=== PATIENT | male | born 1955 | race Caucasian/White ===

== ENCOUNTER 2019-01-03 12:06 | Day surgery (SDC) | payer OTHER ==
[~2019-01-03] VITALS: Ht 177.8 cm; Wt 72.6 kg
[~2019-01-03 12:06] MED LIST: ARIP20 PO; AZIT250 PO; Bactrim 400-801 EACH PO; ETHA400 PO; MOXI400 PO; SERT25 PO; SERT50 PO; [UNRECOGNIZED DRUG - OTHER] PO
--- NOTE | 2019-01-03 13:10 | NUR ---
PT VOMITTING OUT IN WAITING AREA. STATES HE HAS BEEN NAUSEATED A COUPLE HOURS. BROUGHT PT BACK TO DAY SURGERY AND STATED HE WAS FEELING BETTER AFTER LYING DOWN. PT AGREES WITH PLANNED SURGERYL.
--- NOTE | 2019-01-03 13:56 | NUR ---
01/03/19 1356 Leo Colin 3-LEAD EKG REVIEWED WITH PHYSICIAN PRIOR TO START OF PROCEDURE.PATIENT CONFIRMS NPO STATUS AND AGREES WITH SCHEDULED PROCEDURE.History, Chart, Medications and Allergies reviewed before start of procedure. MONITOR INTACT WITH CONTINUOUS PULSE OXIMETRY AND INTERMITTENT BP. O2 VIA N/C INTACT THROUGHOUT SEDATION/PROCEDURE.
--- NOTE | 2019-01-03 16:03 | NUR ---
Patient up to Ambulate independently. Gait steady. Discharge instructions reviewed with patient. Patient verbalizes understanding. Copy given to patient to take home. Patient States Post-Procedure ride home has been arranged. Discharged via wheelchair to private car for ride home.
== END 2019-01-03 16:00 | disposition home or self-care (01) ==
LOC: ORSCMMR 12:06 → ORD 13:45 → ORSCMMR 16:00
PROVIDERS: Student in an Organized Health Care Education/Training Program
PROC: 0DBK8ZX Excision of Ascending Colon, Via Natural or Artificial Opening Endoscopic, Diagnostic (ICD-10-PCS; principal; 2019-01-03 13:45)
PROC: 0DBL8ZX Excision of Transverse Colon, Via Natural or Artificial Opening Endoscopic, Diagnostic (ICD-10-PCS; principal; 2019-01-03 13:45)
PROC: 0DBP8ZX Excision of Rectum, Via Natural or Artificial Opening Endoscopic, Diagnostic (ICD-10-PCS; principal; 2019-01-03 13:45)
PROC: 0DBN8ZX Excision of Sigmoid Colon, Via Natural or Artificial Opening Endoscopic, Diagnostic (ICD-10-PCS; principal; 2019-01-03 13:45)
DX: R93.5 Abnormal findings on diagnostic imaging of other abdominal regions, including retroperitoneum (principal); D12.5 Benign neoplasm of sigmoid colon; D12.3 Benign neoplasm of transverse colon; D12.2 Benign neoplasm of ascending colon; K63.5 Polyp of colon; D12.8 Benign neoplasm of rectum; K57.30 Diverticulosis of large intestine without perforation or abscess without bleeding; K64.8 Other hemorrhoids; B20 Human immunodeficiency virus [HIV] disease; G47.33 Obstructive sleep apnea (adult) (pediatric); Z79.899 Other long term (current) drug therapy
CPT/HCPCS: 82947; 88305; J2704; J7120

== ENCOUNTER 2019-01-15 14:43 | Emergency (ER) | payer OTHER ==
[~2019-01-15] VITALS: Ht 177.8 cm; Wt 74.8 kg
[2019-01-15] MEDS ORDERED: Percocet 5-3251 EACH PO (15:31)
[2019-01-15] MEDS ORDERED: Zovirax400 MG PO (15:31)
== END 2019-01-15 15:50 | disposition home or self-care (01) ==
LOC: ER 14:43
DX: B02.9 Zoster without complications (principal); N18.3 Chronic kidney disease, stage 3 (moderate); F31.9 Bipolar disorder, unspecified; Z88.0 Allergy status to penicillin; Z88.8 Allergy status to other drugs, medicaments and biological substances; Z79.899 Other long term (current) drug therapy
CPT/HCPCS: 99282

== ENCOUNTER 2019-08-14 08:10 | Emergency (ER) | payer OTHER ==
[~2019-08-14] VITALS: Ht 177.8 cm; Wt 87.1 kg
[~2019-08-14 08:10] MED LIST changes: +ONDA4ODT MM; +Percocet 5-3251 EACH PO; +Zovirax400 MG PO
[2019-08-14 08:57] LABS: BASOPHILS ABSOLUTE AUTO 0.05 K/mm3 (0.00-0.23); BASOPHILS PERCENT AUTO 0 % (0-2); EOSINOPHILS ABSOLUTE AUTO 0.03 K/mm3 (0.00-0.68); EOSINOPHILS PERCENT AUTO 0 % (0-6); Hematocrit 33.1 % (37.0-53.0); Hemoglobin 11.3 g/dL (13.5-17.5); IMMATURE GRAN ABSOLUTE AUTO 0.15 K/mm3 (0.00-0.10); IMMATURE GRAN PERCENT AUTO 1 % (0-1); LYMPHOCYTES PERCENT AUTO 8 % (21-46); MONOCYTES ABSOLUTE AUTO 0.72 K/mm3 (0.16-1.47); MONOCYTES PERCENT AUTO 6 % (4-13); Mean Corpuscular HGB 28.6 pg (26.0-34.0); Mean Corpuscular HGB Conc 34.1 g/dL (31.5-36.5); Mean Corpuscular Volume 84 fL (80-100); Mean Platelet Volume 9.9 fL (9.1-12.4); NEUTROPHILS ABSOLUTE AUTO 9.55 K/mm3 (1.96-9.15); NEUTROPHILS PERCENT AUTO 84 % (41-73); Platelet Count 629 K/mm3 (150-400); RDW Coefficient Variation 14.1 % (11.7-14.2); RDW Standard Deviation 43.2 fL (35.1-46.3); Red Blood Cell Count 3.95 M/mm3 (4.30-5.90)
[2019-08-14] MEDS ORDERED: Zantac150 MG PO (08:57)
[2019-08-14] MEDS ORDERED: FERSU300 PO (08:57)
[2019-08-14] MEDS ORDERED: BIKTARVY 50-201 EACH PO (08:57)
[2019-08-14] MEDS ORDERED: AMLO5 PO (08:58)
[2019-08-14] MEDS ORDERED: Lomotil Tablet1 EACH PO (08:58)
[2019-08-14] MEDS ORDERED: ENOX40I SC (08:58)
[2019-08-14] MEDS ORDERED: Norco 5-325 Ta1 EACH PO (09:12)
[2019-08-14 09:26] LABS: Albumin, Blood 3.2 g/dL (3.4-5.0); Albumin/Globulin Ratio 0.5 (0.8-1.8); Bilirubin, Total 0.2 mg/dL (0.1-1.0); Bun/Creatinine Ratio 33.9 (12.0-20.0); Creatinine, Blood 1.86 mg/dL (0.60-1.20); Globulin, Blood 6.2 g/dL (2.2-4.0); Potassium, Blood 4.5 mmol/L (3.5-5.5); Total Protein, Blood 9.4 g/dL (6.4-8.2)
== END 2019-08-14 09:24 | disposition home or self-care (01) ==
LOC: ER 08:10
PROVIDERS: Emergency Medicine
DX: G89.18 Other acute postprocedural pain (principal); R10.9 Unspecified abdominal pain; N18.2 Chronic kidney disease, stage 2 (mild); B20 Human immunodeficiency virus [HIV] disease; Z88.0 Allergy status to penicillin; Z88.8 Allergy status to other drugs, medicaments and biological substances; Z79.899 Other long term (current) drug therapy; Z98.890 Other specified postprocedural states
CPT/HCPCS: 36415; 80053; 85025; 99283

== ENCOUNTER 2019-08-17 03:13 | Inpatient (IN) | payer OTHER ==
[~2019-08-17] VITALS: Ht 177.8 cm; Wt 73.6 kg
[~2019-08-17 03:13] MED LIST changes: +AMLO5 PO; +BIKTARVY 50-201 EACH PO; +ENOX40I SC; +FERSU300 PO; +Lomotil Tablet1 EACH PO; +Norco 5-325 Ta1 EACH PO; +Zantac150 MG PO
[2019-08-17 03:40] LABS: BASOPHILS ABSOLUTE AUTO 0.02 K/mm3 (0.00-0.23); BASOPHILS PERCENT AUTO 0 % (0-2); EOSINOPHILS ABSOLUTE AUTO 0.01 K/mm3 (0.00-0.68); EOSINOPHILS PERCENT AUTO 0 % (0-6); Hematocrit 33.2 % (37.0-53.0); Hemoglobin 11.6 g/dL (13.5-17.5); IMMATURE GRAN ABSOLUTE AUTO 0.09 K/mm3 (0.00-0.10); IMMATURE GRAN PERCENT AUTO 1 % (0-1); LYMPHOCYTES ABSOLUTE AUTO 1.21 K/mm3 (0.84-5.20); LYMPHOCYTES PERCENT AUTO 11 % (21-46); MONOCYTES ABSOLUTE AUTO 0.83 K/mm3 (0.16-1.47); MONOCYTES PERCENT AUTO 8 % (4-13); Mean Corpuscular HGB 28.6 pg (26.0-34.0); Mean Corpuscular HGB Conc 34.9 g/dL (31.5-36.5); Mean Corpuscular Volume 82 fL (80-100); NEUTROPHILS ABSOLUTE AUTO 8.62 K/mm3 (1.96-9.15); NEUTROPHILS PERCENT AUTO 80 % (41-73); Platelet Count 676 K/mm3 (150-400); RDW Coefficient Variation 13.5 % (11.7-14.2); RDW Standard Deviation 39.8 fL (35.1-46.3); Red Blood Cell Count 4.06 M/mm3 (4.30-5.90); White Blood Cell Count 10.78 K/mm3 (4.00-11.30)
[2019-08-17 04:00] LABS: Albumin, Blood 3.1 g/dL (3.4-5.0); Albumin/Globulin Ratio 0.6 (0.8-1.8); Bilirubin, Total 0.3 mg/dL (0.1-1.0); Bun/Creatinine Ratio 42.2 (12.0-20.0); Calcium, Blood 8.5 mg/dL (8.5-10.1); Creatinine, Blood 2.49 mg/dL (0.60-1.20); Globulin, Blood 5.5 g/dL (2.2-4.0); Potassium, Blood 4.3 mmol/L (3.5-5.5); Total Protein, Blood 8.6 g/dL (6.4-8.2)
--- NOTE | 2019-08-17 07:37 | NUR ---
SHIFT SUMMARY PT NEW ADMIT TO FLOOR AROUND 0530. AOX4. [facility] [place]. VSS. REPORTS FEELING NAUSEOUS & IS DRY HEAVING DURING ASSESSMENT, ZOFRAN GIVEN PER ORDERS, CHECKED W/CHARGE NURSE IF OKAY TO GIVE SINCE PT HAD JUST RECIEVED ZOFRAN IN ER AROUND 0400. REPORTED TO DAY SHIFT RN THAT PT MAY NEED OTHER COVERAGE FOR NAUSEA. PT REPORTS 2/10 PAIN IN LOWER ABD. ABD IS SEVERELY DISTENDED, MORE FIRM ON RIGHT QUADRANTS COMPARED TO LEFT. COLOSTOMY IS ON RLQ, PT REPORTS NO OUTPUT IN THE PAST 3 DAYS, CHANGED OSTOMY APPLIANCE. 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 STATES HE HAS LOST ROUGHLY 26 LBS SINCE , SAYS HE FEELS HUNGRY BUT "IT HURTS TO SWALLOW." NG IN LEFT NARES SET TO LOW INTERMITANT SUCTION, HAS SCANT AMOUNT YELLOW BROWNISH OUTPUT. PT ALSO HAD INCONTINENT LOOSE BM & STATES HE HAS STILL BEEN HAVING BM EVEN W/HIS COLOSTOMY. PT NPO PER ORDERS. PT HAS HX AFIB & HEART SOUNDS IRREGULAR. CALL LIGHT IN REACH.
[2019-08-17 10:09] LABS: Uric Acid, Blood 11.7 mg/dL (3.5-7.2)
--- NOTE | 2019-08-17 14:52 | NUR ---
PATIENT VESTA TRANSFERRED TO [facility] NS RUNNING AT 75ML/HR. PACKET GIVEN TO AUTO BODY REPAIR TEACHER. REPORT CALLED TO MARGARITA ON [facility] 9D. BELONGINGS SENT WITH PATIENT. NG TUBE CLAMPED FOR TRASNPORT. PATIENT DENIES ANY FURTHER QUESTIONS OR CONCERNS.
== END 2019-08-17 14:48 | DRG 388 ==
LOC: ER 03:13 → MEDS 05:20
PROVIDERS: Emergency Medicine; Internal Medicine Nephrology; ADMIT Internal Medicine
PROC: 0D9670Z Drainage of Stomach with Drainage Device, Via Natural or Artificial Opening (ICD-10-PCS; principal; 2019-08-17)
DX: K56.609 Unspecified intestinal obstruction, unspecified as to partial versus complete obstruction (principal); K85.90 Acute pancreatitis without necrosis or infection, unspecified; E87.1 Hypo-osmolality and hyponatremia; N17.9 Acute kidney failure, unspecified; D63.1 Anemia in chronic kidney disease; D69.6 Thrombocytopenia, unspecified; N18.3 Chronic kidney disease, stage 3 (moderate); F31.9 Bipolar disorder, unspecified; Z21 Asymptomatic human immunodeficiency virus [HIV] infection status; E86.0 Dehydration; Z93.3 Colostomy status
CPT/HCPCS: 36415; 74176; 80053; 83690; 83930; 84295; 84550; 85025; J1650; J2405; J7030

== ENCOUNTER 2021-06-13 23:48 | Inpatient (IN) | payer OTHER ==
[~2021-06-13] VITALS: Ht 177.8 cm; Wt 73.5 kg
[2021-06-14 00:17] LABS: BASOPHILS ABSOLUTE AUTO 0.05 K/mm3 (0.00-0.23); BASOPHILS PERCENT AUTO 1 % (0-2); EOSINOPHILS ABSOLUTE AUTO 0.03 K/mm3 (0.00-0.68); EOSINOPHILS PERCENT AUTO 0 % (0-6); Hematocrit 42.5 % (37.0-53.0); Hemoglobin 13.9 g/dL (13.5-17.5); IMMATURE GRAN ABSOLUTE AUTO 0.03 K/mm3 (0.00-0.10); IMMATURE GRAN PERCENT AUTO 0 % (0-1); LYMPHOCYTES ABSOLUTE AUTO 1.14 K/mm3 (0.84-5.20); LYMPHOCYTES PERCENT AUTO 11 % (21-46); MONOCYTES ABSOLUTE AUTO 0.38 K/mm3 (0.16-1.47); MONOCYTES PERCENT AUTO 4 % (4-13); Mean Corpuscular HGB 28.3 pg (26.0-34.0); Mean Corpuscular HGB Conc 32.7 g/dL (31.5-36.5); Mean Corpuscular Volume 86 fL (80-100); Mean Platelet Volume 10.1 fL (9.1-12.4); NEUTROPHILS ABSOLUTE AUTO 9.11 K/mm3 (1.96-9.15); NEUTROPHILS PERCENT AUTO 85 % (41-73); Platelet Count 426 K/mm3 (150-400); RDW Coefficient Variation 13.8 % (11.7-14.2); RDW Standard Deviation 43.8 fL (35.1-46.3); Red Blood Cell Count 4.92 M/mm3 (4.30-5.90); White Blood Cell Count 10.74 K/mm3 (4.00-11.30)
[2021-06-14 00:35] LABS: Troponin I 0.04 ng/mL (0.000-0.040)
[2021-06-14 00:36] LABS: Albumin, Blood 3.2 g/dL (3.4-5.0); Albumin/Globulin Ratio 0.7 (0.8-1.8); Bilirubin, Total 0.5 mg/dL (0.1-1.0); Bun/Creatinine Ratio 17.5 (12.0-20.0); Creatinine, Blood 1.43 mg/dL (0.60-1.20); Globulin, Blood 4.9 g/dL (2.2-4.0); Potassium, Blood 4.1 mmol/L (3.5-5.5); Total Protein, Blood 8.1 g/dL (6.4-8.2)
[2021-06-14 00:58] LABS: Influenza A, PCR NEGATIVE (NEGATIVE); Influenza B, PCR NEGATIVE (NEGATIVE); Resp Syncytial Virus, PCR NEGATIVE (NEGATIVE); SARS-Cov-2 (COVID-19) PCR, MMC NEGATIVE (NEGATIVE)
[2021-06-14] MEDS ORDERED: SERT100 PO (01:07)
[2021-06-14] MEDS ORDERED: PIFELTRO100 MG PO (01:09)
[2021-06-14] MEDS ORDERED: EMTRICITABINE200 MG PO (01:09)
[2021-06-14] MEDS ORDERED: SULFAMETHOXAZO1 EACH PO (01:09)
--- NOTE | 2021-06-14 05:45 | NUR ---
SHIFT SUMMARY PATIENT ARRIVED TO ROOM 326 VIA STRETCHER AT 0345. HE IS ALERT AND ORIENTED X4. HAS NO COMPLAINTS OF PAIN. SHORT OF BREATH AND DYSPNIC ON EXERTION. ABLE TO AMBULATE INDEPENDENTLY. NO ACUTE ISSUES NOTED SINCE ADMIT. CALL LIGHT WITHIN REACH. REPORT GIVEN TO ONCOMING RN.
[2021-06-14 10:32] LABS: Bun/Creatinine Ratio 16.1 (12.0-20.0); Creatinine, Blood 1.49 mg/dL (0.60-1.20); Potassium, Blood 3.5 mmol/L (3.5-5.5)
[2021-06-14 10:35] LABS: BASOPHILS ABSOLUTE AUTO 0.06 K/mm3 (0.00-0.23); BASOPHILS PERCENT AUTO 1 % (0-2); EOSINOPHILS ABSOLUTE AUTO 0.03 K/mm3 (0.00-0.68); EOSINOPHILS PERCENT AUTO 0 % (0-6); Hematocrit 42.3 % (37.0-53.0); Hemoglobin 13.9 g/dL (13.5-17.5); IMMATURE GRAN ABSOLUTE AUTO 0.03 K/mm3 (0.00-0.10); IMMATURE GRAN PERCENT AUTO 0 % (0-1); LYMPHOCYTES ABSOLUTE AUTO 1.14 K/mm3 (0.84-5.20); LYMPHOCYTES PERCENT AUTO 11 % (21-46); MONOCYTES ABSOLUTE AUTO 0.55 K/mm3 (0.16-1.47); MONOCYTES PERCENT AUTO 5 % (4-13); Mean Corpuscular HGB 27.8 pg (26.0-34.0); Mean Corpuscular HGB Conc 32.9 g/dL (31.5-36.5); Mean Corpuscular Volume 85 fL (80-100); Mean Platelet Volume 10.2 fL (9.1-12.4); NEUTROPHILS ABSOLUTE AUTO 8.49 K/mm3 (1.96-9.15); NEUTROPHILS PERCENT AUTO 82 % (41-73); Platelet Count 374 K/mm3 (150-400); RDW Coefficient Variation 13.7 % (11.7-14.2); RDW Standard Deviation 42.5 fL (35.1-46.3)
--- NOTE | 2021-06-14 19:26 | NUR ---
PT WITH ELEVATED BP, PRN HYDRALAZINE ORDERED AND GIVEN WITH GOOD RESPONSE. PT'S HR IS UP TO 140'S WHEN HE REMOVES HIS OXYGEN AND WALKS TO THE BATHROOM. RECOVERS WELL WHEN HE RETURNS TO BED AND REPLACES OX, NO ACUTE CHANGES NOTED THIS SHIFT
[2021-06-15 04:54] LABS: BASOPHILS ABSOLUTE AUTO 0.04 K/mm3 (0.00-0.23); BASOPHILS PERCENT AUTO 0 % (0-2); EOSINOPHILS PERCENT AUTO 0 % (0-6); Hematocrit 40.6 % (37.0-53.0); Hemoglobin 13.7 g/dL (13.5-17.5); IMMATURE GRAN ABSOLUTE AUTO 0.03 K/mm3 (0.00-0.10); IMMATURE GRAN PERCENT AUTO 0 % (0-1); LYMPHOCYTES ABSOLUTE AUTO 0.87 K/mm3 (0.84-5.20); LYMPHOCYTES PERCENT AUTO 8 % (21-46); MONOCYTES ABSOLUTE AUTO 0.38 K/mm3 (0.16-1.47); MONOCYTES PERCENT AUTO 4 % (4-13); Mean Corpuscular HGB 28.4 pg (26.0-34.0); Mean Corpuscular HGB Conc 33.7 g/dL (31.5-36.5); Mean Corpuscular Volume 84 fL (80-100); Mean Platelet Volume 10.5 fL (9.1-12.4); NEUTROPHILS ABSOLUTE AUTO 9.67 K/mm3 (1.96-9.15); NEUTROPHILS PERCENT AUTO 88 % (41-73); Platelet Count 403 K/mm3 (150-400); RDW Coefficient Variation 13.6 % (11.7-14.2); RDW Standard Deviation 42.1 fL (35.1-46.3); Red Blood Cell Count 4.83 M/mm3 (4.30-5.90); White Blood Cell Count 10.99 K/mm3 (4.00-11.30)
[2021-06-15 05:38] LABS: Calcium, Blood 9.1 mg/dL (8.5-10.1); Creatinine, Blood 1.65 mg/dL (0.60-1.20); Potassium, Blood 3.8 mmol/L (3.5-5.5)
--- NOTE | 2021-06-15 05:40 | NUR ---
SHIFT SUMMARY: PT IS A/OX4. HE DID HAVE SOME EPISODES OF NAUSEA/DRY HEAVES. ODT ZOFRAN WAS GIVEN AND NOT EFFECTIVE. PHENERGAN WAS ORDERED AND NAUSEA WAS RESOLVED. ON TELE PT WAS ST AND BP WAS ELEVATED TO 165/130. HYDRALAZINE WAS GIVEN WITH A PRESSURE OF 144/100. OTHER VS WERE WNL AND PT WAS RESTING COMFORTABLY. PT HAS CPAP IN ROOM BUT STATES HE DOES NOT CURRENTLY USE AT HOME. PT REMAINED ON 3L OF O2 DURING THE NOC SHIFT AND SATS WERE >92%. CALL LIGHT IS WITHIN REACH AND WE'LL CONTINUE TO MONITOR.
--- NOTE | 2021-06-15 14:35 | NUR ---
[facility] UPDATE CALLED TO LET US KNOW WAITING ON INSURANCE APPROVAL WHICH WONT HAPPEN UNTIL THURSDAY.
--- NOTE | 2021-06-15 17:53 | NUR ---
DAY SHIFT SUMMARY 65 YEAR OLD MALE WITH ACUTE CHF. PT IS ON TELE. PER TELE MONITOR PT STARTED SHIFT WITH ST AT 119, THEN HAD A RUN OF 4 BEAT V-TACH, THEN A 5 BEAT RUN OF V-TACH FOLLOWED BY SR AT 91. PT MEDICATED PER EMAR. CALL LIGHT WITHIN REACH OF PT AND PT CALLS APPROPRIATELY. [facility] ORDER PLACED FOR PT TODAY WITH COMPANY, PER COMPANY THEY WILL BE UNABLE TO RUN THE ORDER THROUGH PT'S INSURANCE UNTIL THURSDAY. DECISION TO BE MADE ON SENDING PT HOME WITH [facility] OR TRANSFERING TO [facility].
--- NOTE | 2021-06-16 03:11 | NUR ---
Pt is alert and oriented x4 and independent. No complains of pain. 2L NC for oxygen. No signs of distress. Patient is tolerating all medications. Patient is now laying on bed in lowest position, call light within reach.
[2021-06-16 05:06] LABS: BASOPHILS ABSOLUTE AUTO 0.05 K/mm3 (0.00-0.23); BASOPHILS PERCENT AUTO 1 % (0-2); EOSINOPHILS ABSOLUTE AUTO 0.11 K/mm3 (0.00-0.68); EOSINOPHILS PERCENT AUTO 2 % (0-6); Hematocrit 41.6 % (37.0-53.0); Hemoglobin 13.4 g/dL (13.5-17.5); IMMATURE GRAN ABSOLUTE AUTO 0.02 K/mm3 (0.00-0.10); IMMATURE GRAN PERCENT AUTO 0 % (0-1); LYMPHOCYTES ABSOLUTE AUTO 1.13 K/mm3 (0.84-5.20); LYMPHOCYTES PERCENT AUTO 18 % (21-46); MONOCYTES ABSOLUTE AUTO 0.41 K/mm3 (0.16-1.47); MONOCYTES PERCENT AUTO 6 % (4-13); Mean Corpuscular HGB 27.7 pg (26.0-34.0); Mean Corpuscular HGB Conc 32.2 g/dL (31.5-36.5); Mean Corpuscular Volume 86 fL (80-100); Mean Platelet Volume 10.2 fL (9.1-12.4); NEUTROPHILS ABSOLUTE AUTO 4.71 K/mm3 (1.96-9.15); NEUTROPHILS PERCENT AUTO 73 % (41-73); Platelet Count 386 K/mm3 (150-400); RDW Coefficient Variation 13.8 % (11.7-14.2); RDW Standard Deviation 43.8 fL (35.1-46.3); Red Blood Cell Count 4.84 M/mm3 (4.30-5.90); White Blood Cell Count 6.43 K/mm3 (4.00-11.30)
[2021-06-16 06:11] LABS: Bun/Creatinine Ratio 22.5 (12.0-20.0); Calcium, Blood 8.9 mg/dL (8.5-10.1); Creatinine, Blood 1.87 mg/dL (0.60-1.20); Potassium, Blood 3.6 mmol/L (3.5-5.5)
--- NOTE | 2021-06-16 10:57 | NUR ---
TRANSFER FROM MED FLOOR TO ICU 65 YR OLD MALE TRANSFERED FROM MEDICAL 326 TO ICU-11. PER TELE MONITOR PT WENT FROM NSR TO AFIB AT 140. MD MADE AWARE AND PER MD ORDER PT TRANSFERED TO ICU FOR CLOSER MONITORING AND IV MEDS. PT TRANSFERED BY BED WITH ALL PERSONAL BELONGINGS IN BED WITH HIM. A/O UPON TRANSFER.
--- NOTE | 2021-06-16 11:00 | NUR ---
PT TRANSFERED FROM MEDICAL ROOM 326 FOR AFIB RVR, NEEDING AMIO GTT. PT IS A/O X4. DENIES CP, N/V, AND SOB. WHEN PLACED ON THE MONITOR RHYTHM SHOWS SR IN THE 80'S. CALLED DR. ALBA WHO CHANGED AMIO GTT TO PO FORM. FIRST DOSE GIVEN. DR. ALBA SAYS IF PT REMAINS IN SR FOR 2 HRS HE CAN GO BACK TO MEDICAL FLOOR. NO SIGN OF DISTRESS. NO REQUESTS. CALL LIGHT IN REACH.
--- NOTE | 2021-06-16 14:02 | NUR ---
PT HAS BEEN STABLE FOR 2 HRS IN ICU. NO AFIB ON MONITOR IN ICU. REPORT GIVEN TO CHI DE LEON WHO WILL RESUME CARE OF PT. NO SIGN OF DISTRESS PT LEAVES ICU VIA W/C ACCOMPANIED BY BUSINESS PROCESS COORDINATOR.
--- NOTE | 2021-06-16 17:32 | NUR ---
DAY SHIFT SUMMARY 65 YR OLD PT WITH ACUTE CHF. [facility] TO BE FITTED THURSDAY AFTER INSURANCE APPROVAL. PT TRANSFERED TO ICU TODAY AT REQUEST OF MD FOR AFIB AT 140, WHEN PT RETURNED TO R HE RETURNED TO MED FLOOR TO SAME ROOM. CURRENT TELE READING OF SR WITH PVC AND PAC AT 89. CALL LIGHT WITHIN REACH OF PT AND ABLE TO CALL APPROPRIATELY.
--- NOTE | 2021-06-17 05:24 | NUR ---
SHIFT SUMMARY PT AOX4 PLEASANT NO ACUTE CHANGE IN THIS SHIFT REFUSED CPAP ON CONT PULSE MINOTER 97% R/A.PT ON TELE MONITOR SNR RUNNING AT 78 PER DIRECTOR INVESTMENT BANKING.NO SOB NOTED ABLE TO TRANFER INDEPENDENT TO THE BATHROOM.PT MARSHALL EARING AID BY THE BEDSIDE.
[2021-06-17 07:47] LABS: Bun/Creatinine Ratio 24.3 (12.0-20.0); Creatinine, Blood 1.77 mg/dL (0.60-1.20); Potassium, Blood 3.4 mmol/L (3.5-5.5)
--- NOTE | 2021-06-17 19:43 | NUR ---
SHIFT SUMMARY PATIENT RESTING IN BED. PATIENT INDEPENDENT IN ROOM AND ABLE TO MAKE HIS NEEDS KNOWN. ON RA. NO COMPLAINTS OF PAIN, SOB, N/V. PATIENT NPO AFTER BREAKFAST FOR POSSIBLE CARDIOVERSION. CARDIOVERSION NOT NEEDED. PATIENT FITTED WITH [facility] THIS EVENING. PLAN TO DISCHARGE TOMORROW. BED IN LOW POSITION WITH CALL LIGHT IN REACH.
--- NOTE | 2021-06-18 03:30 | NUR ---
SHIFT SUMMARY OFFSET PROOF PRESS OPERATOR REPORT QTC 0.52 DR KAISER MADE AWARE NEW ORDER MAG LEVEL.LAB ORDERED. NO ACUTE CHANGES NOTED IN THIS SHIFT PATIENT CALM NO S/S OF DISTRESS NOTED .STAFF WILL CONT TO MONITOR
[2021-06-18 07:16] LABS: Bun/Creatinine Ratio 20.8 (12.0-20.0); Calcium, Blood 8.8 mg/dL (8.5-10.1); Creatinine, Blood 1.73 mg/dL (0.60-1.20); Potassium, Blood 3.7 mmol/L (3.5-5.5)
--- NOTE | 2021-06-18 08:02 | NUR ---
HALEY recmarie handoff of patient care from HALEY Pastrana Patient was alert and orient and awake in bed. Patient had no requests at this time
--- NOTE | 2021-06-18 14:00 | NUR ---
Met pt. with his therapists in the room attending to his needs prayed for pt.
[2021-06-18] MEDS ORDERED: FURO20 PO (16:28)
[2021-06-18] MEDS ORDERED: Amiodarone HCl200 MG PO (16:29)
[2021-06-18] MEDS ORDERED: ELIQUIS2.5 MG PO (16:32)
[2021-06-18] MEDS ORDERED: Aspir 8181 MG PO (16:33)
[2021-06-18] MEDS ORDERED: Carvedilol12.5 MG PO (16:34)
[2021-06-18] MEDS ORDERED: ATOR20 PO (16:34)
--- NOTE | 2021-06-18 17:06 | NUR ---
Patient was alert and orient, he was excited to be discharged today. He was discharged at 1715 and his dad picked him up. RN reviewed discharge instructions and medications. RN also helped pack his belongings. Patient had no further requests at this time. He was assisted of the unit by staff.
== END 2021-06-18 17:04 | disposition home or self-care (01) | DRG 292 ==
LOC: ER 23:48 → MEDS 06-14 02:35 → ICUW 06-16 10:47 → MEDS 06-16 14:25
PROVIDERS: Emergency Medicine; Family Medicine; Student in an Organized Health Care Education/Training Program; ADMIT Internal Medicine
DX: I50.21 Acute systolic (congestive) heart failure (principal); B20 Human immunodeficiency virus [HIV] disease; I42.9 Cardiomyopathy, unspecified; Z20.822 Contact with and (suspected) exposure to COVID-19; I48.0 Paroxysmal atrial fibrillation; N18.30 Chronic kidney disease, stage 3 unspecified; F31.9 Bipolar disorder, unspecified; G47.33 Obstructive sleep apnea (adult) (pediatric); M54.9 Dorsalgia, unspecified; R79.1 Abnormal coagulation profile; G89.29 Other chronic pain; Z88.0 Allergy status to penicillin; Z88.8 Allergy status to other drugs, medicaments and biological substances; Z28.21 Immunization not carried out because of patient refusal; Z79.899 Other long term (current) drug therapy; Z98.890 Other specified postprocedural states; Z85.048 Personal history of other malignant neoplasm of rectum, rectosigmoid junction, and anus; Z91.14 Patient's other noncompliance with medication regimen
CPT/HCPCS: 0241U; 36415; 71045; 80048; 80053; 83605; 83735; 83880; 84484; 85025; 85379; 93005; 93010; 93306; 94660; 94762; 96374; 99285; A9270; J0360; J1644; J1940; J2550

== ENCOUNTER 2021-11-20 23:56 | Inpatient (IN) | payer OTHER ==
[~2021-11-20] VITALS: Ht 177.8 cm; Wt 73.8 kg
[~2021-11-20 23:56] MED LIST changes: +ATOR20 PO; +Amiodarone HCl200 MG PO; +Aspir 8181 MG PO; +Carvedilol12.5 MG PO; +ELIQUIS2.5 MG PO; +EMTRICITABINE200 MG PO; +FURO20 PO; +PIFELTRO100 MG PO; +SERT100 PO; +SULFAMETHOXAZO1 EACH PO
[2021-11-21 00:59] LABS: BASOPHILS ABSOLUTE AUTO 0.02 K/mm3 (0.00-0.23); BASOPHILS PERCENT AUTO 0 % (0-2); EOSINOPHILS PERCENT AUTO 0 % (0-6); Hematocrit 36.7 % (37.0-53.0); Hemoglobin 11.8 g/dL (13.5-17.5); IMMATURE GRAN ABSOLUTE AUTO 0.06 K/mm3 (0.00-0.10); IMMATURE GRAN PERCENT AUTO 0 % (0-1); LYMPHOCYTES PERCENT AUTO 7 % (21-46); MONOCYTES ABSOLUTE AUTO 0.81 K/mm3 (0.16-1.47); MONOCYTES PERCENT AUTO 6 % (4-13); Mean Corpuscular HGB 25.4 pg (26.0-34.0); Mean Corpuscular HGB Conc 32.2 g/dL (31.5-36.5); Mean Corpuscular Volume 79 fL (80-100); Mean Platelet Volume 10.8 fL (9.1-12.4); NEUTROPHILS ABSOLUTE AUTO 11.57 K/mm3 (1.96-9.15); NEUTROPHILS PERCENT AUTO 87 % (41-73); NRBC ABSOLUTE 0.02 K/mm3 (0.00-0.02); NRBC Auto 0.1 /100 WBC (0.0-0.2); Platelet Count 371 K/mm3 (150-400); RDW Standard Deviation 45.6 fL (35.1-46.3); Red Blood Cell Count 4.64 M/mm3 (4.30-5.90); White Blood Cell Count 13.36 K/mm3 (4.00-11.30)
[2021-11-21 01:11] LABS: Albumin, Blood 2.7 g/dL (3.4-5.0); Albumin/Globulin Ratio 0.6 (0.8-1.8); Bun/Creatinine Ratio 28.4 (12.0-20.0); Calcium, Blood 8.6 mg/dL (8.5-10.1); Creatinine, Blood 1.83 mg/dL (0.60-1.20); Globulin, Blood 4.6 g/dL (2.2-4.0); Potassium, Blood 4.7 mmol/L (3.5-5.5); Total Protein, Blood 7.3 g/dL (6.4-8.2)
[2021-11-21 02:22] LABS: Influenza A, PCR NEGATIVE (NEGATIVE); Influenza B, PCR NEGATIVE (NEGATIVE); Resp Syncytial Virus, PCR NEGATIVE (NEGATIVE); SARS-Cov-2 (COVID-19) PCR, MMC NEGATIVE (NEGATIVE)
--- NOTE | 2021-11-21 06:14 | NUR ---
PT ARRIVED FROM ED ON 2L NC. A&OX4. DENIES PAIN. AMBULATES IN ROOM. BEDSIDE URINAL. INDEPENDENT WITH CARE. SURGICAL SCAR AT ABDOMEN. DENIES SKIN ISSUES. 2+ PITTING EDEMA BLE. DENIES CHEST PAIN OR SOB. CTM COMFORT, PAIN, OXYGENATION, CO
[2021-11-21 08:42] LABS: BASOPHILS ABSOLUTE AUTO 0.04 K/mm3 (0.00-0.23); BASOPHILS PERCENT AUTO 0 % (0-2); EOSINOPHILS ABSOLUTE AUTO 0.01 K/mm3 (0.00-0.68); EOSINOPHILS PERCENT AUTO 0 % (0-6); Hematocrit 40.6 % (37.0-53.0); Hemoglobin 12.6 g/dL (13.5-17.5); IMMATURE GRAN ABSOLUTE AUTO 0.07 K/mm3 (0.00-0.10); IMMATURE GRAN PERCENT AUTO 1 % (0-1); LYMPHOCYTES ABSOLUTE AUTO 1.17 K/mm3 (0.84-5.20); LYMPHOCYTES PERCENT AUTO 8 % (21-46); MONOCYTES ABSOLUTE AUTO 0.81 K/mm3 (0.16-1.47); MONOCYTES PERCENT AUTO 6 % (4-13); Mean Corpuscular Volume 81 fL (80-100); Mean Platelet Volume 10.4 fL (9.1-12.4); NEUTROPHILS ABSOLUTE AUTO 12.04 K/mm3 (1.96-9.15); NEUTROPHILS PERCENT AUTO 85 % (41-73); Platelet Count 315 K/mm3 (150-400); RDW Coefficient Variation 16.1 % (11.7-14.2); RDW Standard Deviation 47.3 fL (35.1-46.3); Red Blood Cell Count 5.03 M/mm3 (4.30-5.90); White Blood Cell Count 14.14 K/mm3 (4.00-11.30)
[2021-11-21 08:56] LABS: Albumin, Blood 2.8 g/dL (3.4-5.0); Albumin/Globulin Ratio 0.6 (0.8-1.8); Bilirubin, Total 1.2 mg/dL (0.1-1.0); Bun/Creatinine Ratio 27.1 (12.0-20.0); Calcium, Blood 8.7 mg/dL (8.5-10.1); Creatinine, Blood 1.81 mg/dL (0.60-1.20); Potassium, Blood 3.8 mmol/L (3.5-5.5); Total Protein, Blood 7.8 g/dL (6.4-8.2)
[2021-11-21 08:57] LABS: CPK Creatine Kinase 106 U/L (39-308)
[2021-11-21] MEDS ORDERED: POTA10T PO (10:50)
[2021-11-21] MEDS ORDERED: Atarax10 MG PO (10:53)
[2021-11-21] MEDS ORDERED: ONDA4 PO (10:53)
[2021-11-21] MEDS ORDERED: DOCU100 PO (10:54)
[2021-11-21] MEDS ORDERED: PIFELTRO100 MG PO (10:59)
[2021-11-21] MEDS ORDERED: EMTRICITABINE200 MG PO (10:59)
[2021-11-21] MEDS ORDERED: [UNRECOGNIZED DRUG - OTHER] PO (10:59)
--- NOTE | 2021-11-21 11:33 | NUR ---
AM NOTE: PATIENT ALERT AND ORIENTED X4. VERY SLEEPY AND QUIET. MOSTLY JUST SHAKING HEAD YES AND NO TO QUESTIONS. ABLE TO TURN SELF IN BED. SBA WHEN UP. BED BATH THIS AM. ON 1-2L NASAL CANNULA SATING MID 90'S. DENIES SOB ALTHOUGH RR INCREASE WITH MOVEMENT OR TALKING. LUNGS SOUNDING CLEAR WITH SOME CRACKLES IN BASES. DENIES COUGH. TELE SHOWING SINUS RHYTHM WITH HR 90-110'S. FREQUENT PVC'S. DENIES CHEST PAIN/PRESSURE. BP ELEVATED. BLE 2+ PITTING EDEMA. FLUID RESTRICTION IN PLACE. EATING WELL. DENIES ABDOMINAL PAIN/NAUSEA. STOOL SAMPLE TO BE COLLECTED. USING URINAL, OCCASIONAL INCONTINENCE. SLIGHTLY ELEVATED TEMP THIS AFTERNOON 99.7 TAKEN VIA ORAL. MED REC COMPLETED WITH PATIENTS MOTHER IN [place]. ABLE TO READ OFF MEDICATION BOTTLES AT HOME, WITH PATIENT PERMISSION. [facility] ALSO FAXED FOR PRESCRIPTION RECORDS. WAITING FOR FAX. DR. KAISER CALLED TO UPDATE ON MED REC, ELEVATED BP, POSSIBLE WORMS REPORTED BY PARTNER, AND FLUID INTAKE/OUTPUT. PATIENT PARTNER BOB IN THIS AM TO DROP OFF PATIENT BELONGINGS. BOB TOLD THIS RN, ABOUT CATS AT HOME HAVING WORMS AND THAT SHE STARTED PASSING THEM HERSELF, SHE WAS WORRIED ABOUT PATIENT HAVING THEM WELL. UP WITH SBA. SLEEPING AT THIS TIME. WILL CONTINUE TO MONITOR.
--- NOTE | 2021-11-21 11:41 | NUR ---
MESSAGE LEFT FOR PARTNER BOB TO BRING IN PATIENT HOME MEDICATIONS THAT WE DO NOT CARRY. CALL PLACED WITH PATIENT PERMISSION.
--- NOTE | 2021-11-21 12:55 | NUR ---
PATIENT HR UP TO 140'S WHILE SLEEPING, LESS THAN ONE MIN. DID NOT SUSTAIN. BACK DOWN 90'S-100'S. NONSYMPTOMATIC. WILL CONTINUE TO MONITOR.
--- NOTE | 2021-11-21 15:43 | NUR ---
UPDATE: 1600 CHECK BP ELEVATED. CALL PLACED TO DR. KAISER TO, ORDERS TO GIVE COREG EARLY. COREG ADMINISTERED. PATIENT HR SUSTAINING 150'S, TOUCHED UP TO 160'S. CALL PLACED TO DR. KAISER AGAIN. ORDERS TO GIVE IV METOPROLOL 5MG X1. ADMINISTERED AND PATIENT HR TRENDING DOWN. SEE VITALS FOR DOCUMENTED HR. PATIENT DENIES SYMPTOMS. DENIES PALPITATIONS, DIZZINESS, AND ALL OTHERS. SITTING IN BED AT THIS TIME. STATUS CHANGED TO PCU, WILL CONTINUE TO MONITOR.
--- NOTE | 2021-11-21 15:58 | NUR ---
UPDATE: PATIENT CONVERTED TO AFIB AT 1537, RIGHT AFTER METOPROLOL WAS GIVEN. PATIENT STATES HE HAS HISTORY OF AFIB BUT DOES NOT REMEMBER TAKING ANY MEDICATIONS FROM IT. MED REC COMPLETED WITH PATIENT MOTHER IN [place] AND [facility], SEE CHART FOR RECORDS. DR. KAISER CALLED TO UPDATE ON CONVERSION TO AFIB, SEE PRN ORDERS. WILL CONTACT DR. KAISER AGAIN IF PATIENT HR STARTS INCREASING. CONVERTED BACK TO SINUS TACH AT 1552. SEE SAVED STRIPS FROM [employer].
--- NOTE | 2021-11-21 16:51 | NUR ---
UPDATE: HR TRENDING DOWN. CONVERSION BACK TO AFIB FROM SINUS TACH. SEE SAVED STRIPS FROM TELE MONITOR SILVANA. HR SUSTAINING 90-110'S. PATIENT SLIGHTLY RESTLESS/ANXIOUS. SEE EMAR FOR PRN ATARAX THAT WAS GIVEN. PARTNER BOB AT BEDSIDE. DENIES NEEDS AT THIS TIME. WILL CONTINUE TO MONITOR.
[2021-11-21 17:04] LABS: CPK Creatine Kinase 78 U/L (39-308)
--- NOTE | 2021-11-21 17:32 | NUR ---
SHIFT SUMMARY: SEE PREVIOUS NOTES FOR UPDATES THROUGHOUT SHIFT. NO CHANGES TO NEURO. REMAINS ON 1-4L NEEDING MORE WHEN ASLEEP. PATIENT STATES HE STOPPED WEARING HIS CPAP AT HOME AROUND 2019. THIS RN NOTED SOME SLEEP APNEA AND DESATING WHEN SLEEPING. CPAP OFFERED AND PATIENT REFUSED. WILL PASS OFF TO TESTING CONSULTANT. 2 EPISODES THIS AM OF URINE INCONTINENCE. THIS RN EDUCATED PATIENT IMPORTANCE OF USING URINAL SO WE ARE ABLE TO MEASURE. PATIENT ABLE TO USE URINAL, WELL EPISODES OF INCONTINENCE. FLUID RESTRICTION IN PLACE AND MAINTAINED. NO BOWEL MOVEMENT, NEEDING STOOL SAMPLE. ONE EPISODE OF NAUSEA THIS AFTERNOON RELIEVED WITH ZOFRAN. UP WITH SBA. TELE SHOWING AFIB AT THIS TIME. SEE PREVIOUS NOTES REGARDING TELE EVENTS. BRIEF TIMELINE OF TELE EVENTS LISTED BELOW. THIS AM PATIENT WAS IN SINUS RHYTHM - SINUS TACH HR 90-100'S. 1600 BP CHECK ELEVATED, ORDERS TO GIVE COREG EARLY. 1526 PATIENT STARTED TO SUSTAIN HR 150'S, ORDERS TO GIVE IV METOPROLOL. 1537 CONVERTED TO AFIB HR 120-130'S, DR KAISER UPDATED. 1558 CONVERTED TO SINUS TACH HR REMAINS 130'S, DR. KAISER UPDATED/PRN IV METOP. 1630 MANJU PATIENT CONVERTED BACK TO AFIB AND HR 90'S-110'S. AT THIS TIME PATIENT REMAINS AFIB, WITH HR 90'S. DENIES CHEST PAIN/PRESSURE. BP TRENDING DOWN BUT STILL SLIGHTLY ELEVATED. WILL CONTINUE TO MONITOR. PATIENT SLEEPING AT THIS TIME. CALL LIGHT IN REACH. WILL CONTINUE TO MONITOR AND REPORT OFF TO ONCOMING RN.
[2021-11-22 04:39] LABS: Bun/Creatinine Ratio 27.6 (12.0-20.0); Calcium, Blood 8.5 mg/dL (8.5-10.1); Creatinine, Blood 1.81 mg/dL (0.60-1.20); Magnesium, Blood 2.2 mg/dL (1.6-2.4); Potassium, Blood 3.6 mmol/L (3.5-5.5)
--- NOTE | 2021-11-22 07:40 | NUR ---
SHIFT SUMMARY PT ALERT AND ORIENTED X4. ON 2-4L NC SATS OVER 94%. SR 70-80'S THROUGHT THE NIGHT. INCONTINENT. PT IS ON DIURETICS. DOES NOT FEEL THE URGE TO URINATE UNTIL IT IS TOO LATE. BP STABLE. BROUGHT IN HIV HOME MEDICATIONS. PT STATES REQUEST TO LEAVE AMA EARLY THIS EVENING. REASSURED PT MULTIPLE TIMES THIS AM, PT UNSURE IF HE WILL BE ABLE TO STAY, TEARFUL AND EMOTIONAL ABOUT HIS HOSPITAL STAY. LETHARGIC AND SLEEPY FIRST FEW HRS OF SHIFT, OTHERWISE AWAKE. IN BED SEATED WITH CALL ALARM AT SIDE
--- NOTE | 2021-11-22 08:20 | NUR ---
AM NOTE... ASSUMED CARE OF PT AT 0700 THE PT IS A&Ox4 AND IND/SBA IN THE ROOM. THE PT WAS ADMITTED FOR CHF EXAC AND IS CURRENTLY ON A 1200MLS FLUID RESTRICTION AND IV BUMEX. THE PT IS IN SR IN THE 70'S WITH A STABLE BP. THE PT HAS 2+ PITTING EDEMA TO HIS BLE. THE PT IS ON 4L NC WITH O2 SATS >97% L/S CLEAR IN THE UPPER LOBES COARSE IN THE MID/LOWER LOBES. BT PRESENT AND HYPOACTIVE. THE PT IS VERY ANXIOUS AND UPSET THIS AM STATING "I'M DONE AND I JUST WANT TO GO HOME AND BECOMFORTABLE." A PALLIATIVE CARE CONSULT WAS PLACED AND PROVIDER WAS NOTIFIED. A CONDOM CATH WAS PLACED BY THE GIANT TIRE REPAIRER TO HELP WITH THE PT'S URINARY INCONT EPISODES D/T THE BUMEX. WILL CONTINUE TO MONITOR.
--- NOTE | 2021-11-22 16:11 | NUR ---
PT TRANSFER.... PT TO TRANSFER TO THE MEDICAL FLOOR, REPORT GIVEN TO MEDICAL FLOOR HALEY BARNARD. THE PT'S VS WERE STABLE AT TRANSFER. ALL OF PT'S BELONGINGS WERE PACKED AND SENT WITH THE PT.
--- NOTE | 2021-11-22 17:57 | NUR ---
PER LOAD HAUL DUMP OPERATOR Denise BAHENA, THIS PT HAD HAD A VISIT FROM FEMALE PERSON SHORTLY BEFORE HIS TRANSFER TO MEDICAL FLOOR. HE HAD BEEN AWAKE AND ALERT PRIOR TO THIS VISIT, THEN BECAME VERY SLEEPY AFTER VISIT ENDED. VERY SLEEPY ON ARRIVAL AT 1552 TO ROOM 356. BP 96/69, HR 80 WITH PT LYING ON HIS L SIDE. ASKED RICE FARMWORKER TO RE-TAKE VS WITH PT LYING ON HIS BACK: 82/71, HR 76, IS IN SINUS RHYTHM ON TELE. CALLED DR. Loly KAISER TO REPORT THIS, ALSO INFORMED HIM OF PT'S VISITOR AND CHANGE IN DEMEANOR. HE ORDERED TO HOLD COREG AND BUMEX, AND GET URINE TOX. ORDERS PLACED. WILL CONTINUE TO MONITOR.
[2021-11-22 19:55] LABS: Base Excess Venous 7.3 mmol/L; Bicarbonate Venous 29.3 mmol/L (24.0-30.0); PCO2 Venous 38.6 mmHg (38-42)
[2021-11-22 19:57] LABS: BASOPHILS PERCENT AUTO 0 % (0-2); EOSINOPHILS PERCENT AUTO 0 % (0-6); Hematocrit 35.9 % (37.0-53.0); Hemoglobin 11.2 g/dL (13.5-17.5); IMMATURE GRAN ABSOLUTE AUTO 0.05 K/mm3 (0.00-0.10); IMMATURE GRAN PERCENT AUTO 1 % (0-1); LYMPHOCYTES ABSOLUTE AUTO 0.52 K/mm3 (0.84-5.20); LYMPHOCYTES PERCENT AUTO 5 % (21-46); MONOCYTES ABSOLUTE AUTO 0.56 K/mm3 (0.16-1.47); MONOCYTES PERCENT AUTO 5 % (4-13); Mean Corpuscular HGB 25.3 pg (26.0-34.0); Mean Corpuscular HGB Conc 31.2 g/dL (31.5-36.5); Mean Corpuscular Volume 81 fL (80-100); Mean Platelet Volume 10.7 fL (9.1-12.4); NEUTROPHILS ABSOLUTE AUTO 9.83 K/mm3 (1.96-9.15); NEUTROPHILS PERCENT AUTO 90 % (41-73); Platelet Count 264 K/mm3 (150-400); RDW Coefficient Variation 16.1 % (11.7-14.2); RDW Standard Deviation 47.1 fL (35.1-46.3); Red Blood Cell Count 4.43 M/mm3 (4.30-5.90); White Blood Cell Count 10.96 K/mm3 (4.00-11.30)
[2021-11-22 20:16] LABS: Anion Gap 7 mmol/L (6-16); Blood Urea Nitrogen 52 mg/dL (8-24); Bun/Creatinine Ratio 25.7 (12.0-20.0); CO2, Blood 29 mmol/L (21-32); Calcium, Blood 8.1 mg/dL (8.5-10.1); Chloride, Blood 96 mmol/L (98-108); Creatinine, Blood 2.02 mg/dL (0.60-1.20); Glomerular Filtration Rate 36 (60-); Glucose, Blood 115 mg/dL (70-99); Magnesium, Blood 2.2 mg/dL (1.6-2.4); Phosphorus, Blood 3.4 mg/dL (2.5-4.9); Potassium, Blood 3.7 mmol/L (3.5-5.5); Sodium, Blood 132 mmol/L (136-145)
[2021-11-22 21:38] LABS: U Amphetamine Screen DETECTED; U Barbituate Screen Not Detected; U Benzodiazapine Screen Not Detected; U Buprenorphine Screen Not Detected; U Cannabinoids Screen DETECTED; U Cocaine Screen Not Detected; U Methadone Screen Not Detected; U Methamphetamine Screen DETECTED; U Opiates Screen Not Detected; U Oxycodone Screen Not Detected; U Phencyclidine Screen Not Detected; U Propoxyphene Screen Not Detected
--- NOTE | 2021-11-23 05:21 | NUR ---
SHIFT SUMMARY PT WAS LETHARGIC AT THE BEGINNING OF SHIFT. HIS VITALS WERE UNSTABLE. NOTIFIED. ATTEMPTED TO GET PT TO USE CPAP. HE REFUSED AND VBG DRAWN. PT HAS BEEN IN AN OUT OF AFIB THIS SHIFT, BUT CONVERTS BACK. HE HAS BEEN VERY ANXIOUS THIS EVENING AND WHEN QUESTIONED ABOUT RECREATIONAL USE OF DRUGS FOR ANXIETY MANAGEMENT HE DENIES ANY. SHIFT PROGRESSED HE BECAME LESS LETHARGIC AND MORE PARANOID AND ANXIOUS. PT HAS HAD A HARSH DRY COUGH, BUT STATES THIS IS NORMAL AND DENIES NEED FOR COUGH MEDS OR LOZENGES. THERE IS SOME CONCERN AMONG STAFF ABOUT WHETHER VISITORS ARE PROVIDING PT WITH RECREATIONAL DRUGS. CHARGE NURSE NOTIFIED. PT DENYIN CHEST PAIN, BUT CLAIMING A FEELING OF "SOMETHING BAD HAPPENING", BUT WILL NO ELABORATE. BED IN LOWEST POSITION AND CALL LIGHT WITHIN REACH.
[2021-11-23 06:13] LABS: Bun/Creatinine Ratio 25.6 (12.0-20.0); Calcium, Blood 8.2 mg/dL (8.5-10.1); Creatinine, Blood 1.76 mg/dL (0.60-1.20); Potassium, Blood 3.6 mmol/L (3.5-5.5)
--- NOTE | 2021-11-23 10:38 | NUR ---
PATIENT ANXIOUS AT START OF SHIFT STATING HE WANTS TO GO HOME. OFFER ANXIETY MEDICATION AND AGREES TO IT. ANXIETY MEDICATIONS GIVEN. PATIENT CONTINUES TO BE ANXIOUS. WHILE GIVING SCHEDULED MEDS PATIENT CONTINUES TO STATE HE WANTS TO GO HOME AND IS GOING TO LEAVE AMA. CHARGE NURSE AND DOCTOR NOTIFIED.
--- NOTE | 2021-11-23 10:45 | NUR ---
PATIENT LEFT AMA. DOCTOR CAME TO BEDSIDE TO TALK TO PATIENT. PATIENT STILL SET ON LEAVING AMA BUT AGREED TO PRESCRIPTIONS BEING SENT TO PREFERRED PHARMACY. AMA FORM SIGNED AND RISKS DISCUSSED. IVS, TELE, PULSE OX D/C'D. ALL BELONINGS INCLUDING PATIENTS MEDICATIONS TAKEN WITH PATIENT. PATIENT AMBULATED TO ELEVATORS.
[2021-11-23] MEDS ORDERED: ENTRESTO 24 MG1 EACH PO (10:49)
== END 2021-11-23 10:07 | disposition left against medical advice (07) | DRG 291 ==
LOC: ER 23:56 → PCU 11-21 03:06 → MEDS 11-22 15:52
PROVIDERS: Family Medicine; Internal Medicine; Student in an Organized Health Care Education/Training Program; ADMIT Internal Medicine
DX: I50.23 Acute on chronic systolic (congestive) heart failure (principal); J96.01 Acute respiratory failure with hypoxia; I42.0 Dilated cardiomyopathy; E87.1 Hypo-osmolality and hyponatremia; Z20.822 Contact with and (suspected) exposure to COVID-19; Z21 Asymptomatic human immunodeficiency virus [HIV] infection status; F31.9 Bipolar disorder, unspecified; N18.30 Chronic kidney disease, stage 3 unspecified; G89.29 Other chronic pain; M54.9 Dorsalgia, unspecified; I48.91 Unspecified atrial fibrillation; G47.33 Obstructive sleep apnea (adult) (pediatric); Z85.048 Personal history of other malignant neoplasm of rectum, rectosigmoid junction, and anus; Z88.0 Allergy status to penicillin; Z88.8 Allergy status to other drugs, medicaments and biological substances; Z79.4 Long term (current) use of insulin; Z79.01 Long term (current) use of anticoagulants; Z79.82 Long term (current) use of aspirin; Z79.899 Other long term (current) drug therapy
CPT/HCPCS: 0241U; 36415; 71046; 80048; 80053; 80069; 82550; 82803; 83735; 83880; 84484; 85025; 93005; 93010; 94760; 96374; 98960; 99285-25; A9270; J1650; J1940; J2405